=== PATIENT | female | born 1995 | race Caucasian/White ===

== ENCOUNTER 2023-11-21 21:03 | Emergency (ER) | payer SELFPAY ==
[~2023-11-21] VITALS: Ht 160 cm; Wt 72.6 kg
[2023-11-21 22:26] LABS: Source, Urine Voided
[2023-11-21 22:32] LABS: Bilirubin, Urine Neg (Neg); Blood, Urine 3+ (Neg); Glucose Qualitative, Urine Neg (Neg); Ketones, Urine Neg (Neg); Leukocyte Esterase, Urine 2+ (Neg); Nitrite, Urine Neg (Neg); Protein, Urine Neg (Neg); Urobilinogen, Urine NORM (Normal)
[2023-11-21 22:39] LABS: Appearance, Urine Hazy (Clear); Color, Urine Yellow (P-Yellow)
[2023-11-21 22:40] LABS: Bacteria Mod /hpf; Squamous Epithelial Cells Mod /hpf (Few)
[2023-11-22] MEDS ORDERED: Cephalexin Monohydrate 500 MG Cap PO ONE (00:25)
[2023-11-22] MEDS ORDERED: CEPH500 PO (01:05)
== END 2023-11-22 00:12 | disposition home or self-care (01) ==
LOC: ER 21:03
PROVIDERS: Emergency Medicine
DX: N39.0 Urinary tract infection, site not specified (principal); N39.3 Stress incontinence (female) (male)
CPT/HCPCS: 81001; 81025; 99283; A9270

== ENCOUNTER → 2024-11-01 | Outpatient (CLI) | payer SELFPAY ==
[~2024-11-01] MED LIST: CEPH500 PO
== END ==
LOC: LAB 12:07 → LAB SHORT 12:07
PROVIDERS: Advanced Practice Midwife
DX: Z01.419 Encounter for gynecological examination (general) (routine) without abnormal findings (principal)
CPT/HCPCS: G0145